=== PATIENT | male | born 1985 | race Caucasian/White ===

== ENCOUNTER 2023-07-09 23:33 | Inpatient (IN) | payer OTHER, SELFPAY ==
[2023-07-09 23:45] VITALS: BP 108/73; PULSE 80; RESP 16; TEMP 36.2; O2SAT 98
[2023-07-10 01:05] VITALS: BMI 17.1
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
[2023-07-10 07:35] VITALS: BP 116/79; PULSE 91; RESP 18; TEMP 36.1; O2SAT 97
[2023-07-10] MEDS: Dorzolamide HCl 2 % Ophth Sol 10 ML DRPBTL 1 DROP EYE-BOTH ×2 (09:59→20:39)
--- NOTE | 2023-07-10 11:28 | HO.PM.IMCN ---
History of Present Illness Data of Consult Service Date: 07/10/23 Requesting physician: Stefano Salas Primary Care Provider: Stephany Villavicencio MD HPI Reason for consult: medical H&P 38-year-old male with history of mild intermittent asthma, schizophrenia, and retinitis pigmentosa who is a 1/2 pack per day cigarette smoker admitted to Psychiatry from [facility] ED with consult placed hospitalist service for medical H and P. while in the ED, hematology studies without any significant abnormality. Renal function normal, electrolyte levels normal. Urine tox screen negative. He denies any illicit drug use or marijuana use. Denies any alcohol use. He has no complaints at this time. Review of Systems Review of Systems: General: No fevers, malaise, unintentional weight loss HEENT: No blurred vision, diplopia. No sore throat, nasal congestion, rhinorrhea, sinus pain, ear pain Cardiovascular: No chest pain, palpitations, or leg edema Respiratory: No shortness of breath, wheezing, cough GI: No abdominal pain, nausea, vomiting, diarrhea, constipation, melena, hematochezia : No dysuria, hematuria, increased urinary frequency, decreased urinary output MSK: No myalgia, back pain Neuro: No headaches, weakness, paresthesias Skin: No rashes or lesions PENDING SALE TO [facility] Medical History Retinitis pigmentosa Asthma Social History Household Members: Other Household Members Other:: Lives in [facility] long term Housing: House Do you presently have visiting nurse or other home services: Yes ([facility] staff) Patient Tobacco Use Status: Current everyday Tobacco user Tobacco use type: Cigarette Cigarette Packs Per Day: 0.4 Cigarettes Per Day: 8.0 Smoked in Last 30 Days: Yes e-Cigarette/Vaping Use: Never Used Patient Interested in Nicotine Replacement: Yes Patient Given Instructions on How to Stop Smoking: Yes Date Education Initiated: 07/10/23 Second Hand Smoke Exposure: Yes Use of substances other than those prescribed or required for medical reasons: No Currently Displaying Signs/Symptoms of Drug Intoxication Withdrawal: No Any prior treatment program specific to substance use: No Have you been hit, kicked, punched, or otherwise hurt by someone within the past year? If so, by whom?: No Do you feel safe in your current relationship?: No Current Relationship Is there a partner from a previous relationship who is making you feel unsafe now?: No Are you made to feel afraid or neglected: No Spiritual Healthcare Practices: Spirit of It Sabianist Healthcare Practices: none reported Cultural Healthcare Practices: none reported Advance Directives: No Advance Directives Information Provided: No Do you have thoughts of harming others: None Do you have a plan to hurt others: No Plan Recently lost weight without trying: No How much weight loss: Not applicable Eating poorly because of decreased appetite: No Nutrition screen score: 0 Nutrition Risks: No Nutritional Risk Poor oral hygiene: No Meds Allergies Allergy/AdvReac Type Severity Reaction Status Date / Time No Known Allergies Allergy Verified 07/10/23 00:15 Active Medications: Current Medications Acetaminophen (Acetaminophen 325 Mg Tablet) 650 mg PO Q6H PRN PRN Reason: Headache/Pain Mild Scale (1-3) Al Hydroxide/Mg Hydroxide (Magnesium Hydrox/Alum Hydrox 30 Ml Oral.Susp) 30 ml PO Q6H PRN PRN Reason: Heartburn/Nausea Albuterol Sulfate (Albuterol Sulfate 90 Mcg 8 Gm Inhaler) 2 puff INHALE RQ4H PRN PRN Reason: Shortness of Breath Dorzolamide HCl (Dorzolamide Hcl 2 % Ophth Nedra 10 Ml Drpbtl) 1 drop EYE-BOTH BID [facility] Last Admin: 07/10/23 09:59 Dose: 1 drop Dorzolamide HCl (Dorzolamide Hcl 2 % Ophth Nedra 10 Ml Drpbtl) 1 drop EYE-RIGHT DAILY@1500 [facility] Hydroxyzine HCl (Hydroxyzine Hcl 25 Mg Tablet) 25 mg PO Q6H PRN PRN Reason: Anxiety Magnesium Hydroxide (Milk Of Magnesia 30 Ml Oral.Susp) 30 ml PO DAILY PRN PRN Reason: Constipation Nicotine (Nicotine 21 Mg Patch.Td24) 21 mg TRANSDERMA DAILY PRN PRN Reason: smoking cessation Nicotine Polacrilex (Nicotine Polacrilex 2 Mg Gum) 4 mg BUCCAL Q2H PRN PRN Reason: Nicotine Cravings Olanzapine (Olanzapine 5 Mg Tablet) 5 mg PO TID PRN PRN Reason: Restlessness Trazodone HCl (Trazodone Hcl 50 Mg Tablet) 50 mg PO BEDTIME MRX1 PRN PRN Reason: Insomnia Home Medications Medication Instructions Recorded Confirmed Last Taken Type dorzolamide 2 % eye drops 1 drp ophthalmic (eye) BID 07/10/23 07/10/23 Unknown History dorzolamide 2 % eye drops 1 drp ophthalmic-Right DAILY@1500 07/10/23 07/10/23 Unknown History olanzapine 2.5 mg tablet 2.5 mg PO BEDTIME 07/10/23 07/10/23 07/09/23 21:00 History 2.5 mg paliperidone palmitate 234 mg/1.5 234 mg IM Q28D 07/10/23 07/10/23 06/26/23 History mL intramuscular syringe (Invega Sustenna) Physical Exam Vital Signs and Narrative: Vital Signs: Last Vital Signs Temp 97.0 F 07/10/23 07:35 Pulse 91 07/10/23 07:35 Resp 18 07/10/23 07:35 BP 116/79 07/10/23 07:35 Pulse Ox 97 07/10/23 07:35 O2 Del Method Room Air 07/10/23 07:35 BMI result Body Mass Index 17.1 Constitutional - Awake and Alert, No apparent distress Eyes - PERRLA, EOMI Cardiovascular - S1S2, RRR, No edema Respiratory - Normal lung expansion, Normal respiratory effort, No respiratory distress, CTA bilaterally Gastrointestinal - NT / ND; +BS; No rebound or guarding Extremities - no calf tenderness bilaterally, no swelling Musculoskeletal - Normal inspection, normal ROM Skin - Warm/Dry Neurological - Alert & oriented x3, CN II-XII in tact, 5/5 strength BUE and BLE Psychological - Appropriate affect Assessment and Plan (1) Routine medical exam: Status: Acute Plan 38-year-old male with history of mild intermittent asthma, schizophrenia, and retinitis pigmentosa who is a 1/2 pack per day cigarette smoker admitted to Psychiatry from [facility] ED with consult placed hospitalist service for medical H and P. #Mood/psychotic disorder -plan per psychiatry #Mild intermittent asthma -no acute exacerbation -albuterol prn # retinitis pigmentosa -continue eyedrops as prescribed -outpatient follow-up # nicotine dependence -smoking cessation counseling -NRt Thank you for allowing me to participate in this consult. Signing off at this time. Please do not hesitate to call for further questions.
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
[2023-07-10] MEDS: Dorzolamide HCl 2 % Ophth Sol 10 ML DRPBTL 1 DROP EYE-RIGHT (18:17)
[2023-07-10 19:55] VITALS: BP 137/83; PULSE 79; RESP 16; TEMP 36.6; O2SAT 98
[2023-07-10] MEDS: OLANZapine 5 MG TABLET PO (20:39)
[2023-07-11 06:00] VITALS: BP 108/65; PULSE 94; RESP 16; TEMP 36.2; O2SAT 97
[2023-07-11 07:00] VITALS: BMI 16.9
[2023-07-11 08:18] LABS: Estimated Average Glucose 97 mg/dL
[2023-07-11 08:22] LABS: Cholesterol 182 mg/dL (<200); HDL Cholesterol 65 mg/dL (>40); LDL Cholesterol Calculated 100 mg/dL (<100); Triglycerides 85 mg/dL (<150)
[2023-07-11] MEDS: Dorzolamide HCl 2 % Ophth Sol 10 ML DRPBTL 1 DROP EYE-BOTH ×2 (08:23→20:56)
[2023-07-11 08:45] VITALS: BP 108/65; PULSE 94; RESP 16; TEMP 36.2; O2SAT 97
[2023-07-11] MEDS: Dorzolamide HCl 2 % Ophth Sol 10 ML DRPBTL 1 DROP EYE-RIGHT (14:38)
--- NOTE | 2023-07-11 15:06 | HO.PSYCHPN ---
Subjective Subjective Date of Service: 07/11/23 Reason For Visit: Depression/SI Interim History: no change in presentation. no issues with increase in dosing last night. per staff, denies psych Sx. no dinner. taking meds. slept about 8 hours. Mental Status Exam Mental Status Exam Narrative: adequately dressed in street clothes, appears disheveled. cooperative. no PMA/PMR. speech terse, nml loudness, flattened tone. thoughts linear and logical. affect flat. mood not assessed. no SI/SIBI/HI/AVH expressed. Diagnostics Vital Signs (24Hr): Vital Signs - 24 hr 07/10/23 19:55 07/11/23 06:00 07/11/23 08:45 Temperature 98 F 97.2 F 97.2 F Pulse Rate 79 94 94 Respiratory Rate 16 16 16 Blood Pressure 137/83 108/65 108/65 Pulse Oximetry 98 97 97 Oxygen Delivery Method Room Air Room Air Room Air BMI result Body Mass Index 16.9 Labs Labs: Laboratory Results - last 48 hr 07/11/23 07:54 Estimat Average Glucose 97 Hemoglobin A1c % 5.0 Triglycerides 85 Cholesterol 182 LDL Cholesterol, Calc 100 H HDL Cholesterol 65 Medications Medications Current Medications Acetaminophen (Acetaminophen 325 Mg Tablet) 650 mg PO Q6H PRN PRN Reason: Headache/Pain Mild Scale (1-3) Al Hydroxide/Mg Hydroxide (Magnesium Hydrox/Alum Hydrox 30 Ml Oral.Susp) 30 ml PO Q6H PRN PRN Reason: Heartburn/Nausea Albuterol Sulfate (Albuterol Sulfate 90 Mcg 8 Gm Inhaler) 2 puff INHALE RQ4H PRN PRN Reason: Shortness of Breath Dorzolamide HCl (Dorzolamide Hcl 2 % Ophth Nedra 10 Ml Drpbtl) 1 drop EYE-BOTH BID [facility] Last Admin: 07/11/23 08:23 Dose: 1 drop Dorzolamide HCl (Dorzolamide Hcl 2 % Ophth Nedra 10 Ml Drpbtl) 1 drop EYE-RIGHT DAILY@1500 [facility] Last Admin: 07/11/23 14:38 Dose: 1 drop Hydroxyzine HCl (Hydroxyzine Hcl 25 Mg Tablet) 25 mg PO Q6H PRN PRN Reason: Anxiety Magnesium Hydroxide (Milk Of Magnesia 30 Ml Oral.Susp) 30 ml PO DAILY PRN PRN Reason: Constipation Nicotine (Nicotine 21 Mg Patch.Td24) 21 mg TRANSDERMA DAILY PRN PRN Reason: smoking cessation Nicotine Polacrilex (Nicotine Polacrilex 2 Mg Gum) 4 mg BUCCAL Q2H PRN PRN Reason: Nicotine Cravings Olanzapine (Olanzapine 5 Mg Tablet) 5 mg PO TID PRN PRN Reason: Restlessness Olanzapine (Olanzapine 5 Mg Tablet) 5 mg PO BEDTIME [facility] Last Admin: 07/10/23 20:39 Dose: 5 mg Paliperidone Palmitate (Paliperidone Palmitate 234 Mg/1.5 Ml Syringe) 234 mg IM Q28D [facility] Trazodone HCl (Trazodone Hcl 50 Mg Tablet) 50 mg PO BEDTIME MRX1 PRN PRN Reason: Insomnia Allergies Allergies Allergy/AdvReac Type Severity Reaction Status Date / Time No Known Allergies Allergy Verified 07/10/23 00:15 Assessment & Plan Assessment & Plan (1) Schizophrenia: Status: Acute Code(s): F20.9 - Schizophrenia, unspecified Plan 07/10: last sustenna 234 on 06/26. increase HS zyprexa from 2.5 mg to 5 mg as of tonight. otherwise continue previous mgmt. 07/11: tolerating med change well. continue current mgmt. Reason for continued inpatient stay Substantial Risk for: harm to others, inability to function and rapid decompensation Time Spent With Patient Time: Total time managing care of this patient today __25__ minutes.
[2023-07-11 20:40] VITALS: BP 128/80; PULSE 88; RESP 18; TEMP 36.4; O2SAT 97
[2023-07-11] MEDS: OLANZapine 5 MG TABLET PO (20:57)
[2023-07-12 06:00] VITALS: BP 109/73; PULSE 83; RESP 18; TEMP 36.5; O2SAT 98
[2023-07-12] MEDS: Dorzolamide HCl 2 % Ophth Sol 10 ML DRPBTL 1 DROP EYE-BOTH ×2 (08:45→22:22)
--- NOTE | 2023-07-12 13:22 | P.PNPSI_ITS ---
Subjective Subjective Date of Service: 07/12/23 Reason For Visit: Depression/SI Interim History: calm, cooperative, pleasant. denies any problems, no questions. no side effects, taking medications, sleeping well. aware of plan to discharge back to correction next saturday. per staff, withdrawn. denies AVH. slept 7 hours. Mental Status Exam Mental Status Exam Narrative: adequately dressed in street clothes, appears disheveled. cooperative. no PMA/PMR. speech terse, nml loudness, flattened tone. thoughts linear and logical. affect flat. mood not assessed. no SI/SIBI/HI/AVH expressed. Diagnostics Vital Signs (24Hr): Vital Signs - 24 hr 07/11/23 20:40 07/12/23 06:00 Temperature 97.6 F 97.7 F Pulse Rate 88 83 Respiratory Rate 18 18 Blood Pressure 128/80 109/73 Pulse Oximetry 97 98 Oxygen Delivery Method Room Air Room Air BMI result Body Mass Index 16.9 Labs Labs: Laboratory Results - last 48 hr 07/11/23 07:54 Estimat Average Glucose 97 Hemoglobin A1c % 5.0 Triglycerides 85 Cholesterol 182 LDL Cholesterol, Calc 100 H HDL Cholesterol 65 Medications Medications Current Medications Acetaminophen (Acetaminophen 325 Mg Tablet) 650 mg PO Q6H PRN PRN Reason: Headache/Pain Mild Scale (1-3) Al Hydroxide/Mg Hydroxide (Magnesium Hydrox/Alum Hydrox 30 Ml Oral.Susp) 30 ml PO Q6H PRN PRN Reason: Heartburn/Nausea Albuterol Sulfate (Albuterol Sulfate 90 Mcg 8 Gm Inhaler) 2 puff INHALE RQ4H PRN PRN Reason: Shortness of Breath Dorzolamide HCl (Dorzolamide Hcl 2 % Ophth Nedra 10 Ml Drpbtl) 1 drop EYE-BOTH BID [facility] Last Admin: 07/12/23 08:45 Dose: 1 drop Dorzolamide HCl (Dorzolamide Hcl 2 % Ophth Nedra 10 Ml Drpbtl) 1 drop EYE-RIGHT DAILY@1500 [facility] Last Admin: 07/11/23 14:38 Dose: 1 drop Hydroxyzine HCl (Hydroxyzine Hcl 25 Mg Tablet) 25 mg PO Q6H PRN PRN Reason: Anxiety Magnesium Hydroxide (Milk Of Magnesia 30 Ml Oral.Susp) 30 ml PO DAILY PRN PRN Reason: Constipation Nicotine (Nicotine 21 Mg Patch.Td24) 21 mg TRANSDERMA DAILY PRN PRN Reason: smoking cessation Nicotine Polacrilex (Nicotine Polacrilex 2 Mg Gum) 4 mg BUCCAL Q2H PRN PRN Reason: Nicotine Cravings Olanzapine (Olanzapine 5 Mg Tablet) 5 mg PO TID PRN PRN Reason: Restlessness Olanzapine (Olanzapine 5 Mg Tablet) 5 mg PO BEDTIME [facility] Last Admin: 07/11/23 20:57 Dose: 5 mg Paliperidone Palmitate (Paliperidone Palmitate 234 Mg/1.5 Ml Syringe) 234 mg IM Q28D [facility] Trazodone HCl (Trazodone Hcl 50 Mg Tablet) 50 mg PO BEDTIME MRX1 PRN PRN Reason: Insomnia Allergies Allergies Allergy/AdvReac Type Severity Reaction Status Date / Time No Known Allergies Allergy Verified 07/10/23 00:15 Assessment & Plan Assessment & Plan (1) Schizophrenia: Status: Acute Code(s): F20.9 - Schizophrenia, unspecified Plan 07/10: last sustenna 234 on 06/26. increase HS zyprexa from 2.5 mg to 5 mg as of tonight. otherwise continue previous mgmt. 07/11: tolerating med change well. continue current mgmt. 07/12: stable. continue current mgmt. Reason for continued inpatient stay Substantial Risk for: harm to others, inability to function and rapid decompensation Time Spent With Patient Time: Total time managing care of this patient today ____ minutes.
[2023-07-12] MEDS: Dorzolamide HCl 2 % Ophth Sol 10 ML DRPBTL 1 DROP EYE-RIGHT (17:19)
[2023-07-12 20:11] VITALS: BP 126/72; PULSE 82; RESP 18; TEMP 36.2; O2SAT 98
[2023-07-12] MEDS: OLANZapine 5 MG TABLET PO (22:20)
[2023-07-13 08:30] VITALS: BP 119/71; PULSE 76; RESP 16; TEMP 35.9; O2SAT 97
[2023-07-13] MEDS: Dorzolamide HCl 2 % Ophth Sol 10 ML DRPBTL 1 DROP EYE-BOTH ×2 (08:31→21:39)
--- NOTE | 2023-07-13 14:35 | HO.PSYCHPN ---
Subjective Subjective Date of Service: 07/13/23 Reason For Visit: Depression/SI Subjective Notes: Conditional Voluntary Interim History: The nursing staff reported the patient had been compliant with treatment, he had poor eye contact and today he was anxious and fidgety refusing to go to any groups in the morning. On interview the patient denies new symptoms but denies side effects. Mental Status Exam Mental Status Exam Patient Appearance: Appropriate Patient Orientation: Person and Situation Level of Consciousness: Awake and Appropriate Patient Behavior: Guarded and Passive Mood Description: Withdrawn Affect Description: Constricted Patient Cognition Impaired: Yes Ability to Follow Directions: Good Speech Pattern: Clear Hallucinations: None Delusions: Not Present Thought Process: Distracted and Evasive Thought Content: positive for [place] and positive for Poverty of Content Judgement: Fair Diagnostics Vital Signs (24Hr): Vital Signs - 24 hr 07/12/23 20:11 07/13/23 08:30 Temperature 97.1 F 96.6 F L Pulse Rate 82 76 Respiratory Rate 18 16 Blood Pressure 126/72 119/71 Pulse Oximetry 98 97 Oxygen Delivery Method Room Air BMI result Body Mass Index 16.9 Medications Medications Current Medications Acetaminophen (Acetaminophen 325 Mg Tablet) 650 mg PO Q6H PRN PRN Reason: Headache/Pain Mild Scale (1-3) Al Hydroxide/Mg Hydroxide (Magnesium Hydrox/Alum Hydrox 30 Ml Oral.Susp) 30 ml PO Q6H PRN PRN Reason: Heartburn/Nausea Albuterol Sulfate (Albuterol Sulfate 90 Mcg 8 Gm Inhaler) 2 puff INHALE RQ4H PRN PRN Reason: Shortness of Breath Dorzolamide HCl (Dorzolamide Hcl 2 % Ophth Nedra 10 Ml Drpbtl) 1 drop EYE-BOTH BID [facility] Last Admin: 07/13/23 08:31 Dose: 1 drop Dorzolamide HCl (Dorzolamide Hcl 2 % Ophth Nedra 10 Ml Drpbtl) 1 drop EYE-RIGHT DAILY@1500 [facility] Last Admin: 07/12/23 17:19 Dose: 1 drop Hydroxyzine HCl (Hydroxyzine Hcl 25 Mg Tablet) 25 mg PO Q6H PRN PRN Reason: Anxiety Magnesium Hydroxide (Milk Of Magnesia 30 Ml Oral.Susp) 30 ml PO DAILY PRN PRN Reason: Constipation Nicotine (Nicotine 21 Mg Patch.Td24) 21 mg TRANSDERMA DAILY PRN PRN Reason: smoking cessation Nicotine Polacrilex (Nicotine Polacrilex 2 Mg Gum) 4 mg BUCCAL Q2H PRN PRN Reason: Nicotine Cravings Olanzapine (Olanzapine 5 Mg Tablet) 5 mg PO TID PRN PRN Reason: Restlessness Olanzapine (Olanzapine 5 Mg Tablet) 5 mg PO BEDTIME [facility] Last Admin: 07/12/23 22:20 Dose: 5 mg Paliperidone Palmitate (Paliperidone Palmitate 234 Mg/1.5 Ml Syringe) 234 mg IM Q28D [facility] Trazodone HCl (Trazodone Hcl 50 Mg Tablet) 50 mg PO BEDTIME MRX1 PRN PRN Reason: Insomnia Allergies Allergies Allergy/AdvReac Type Severity Reaction Status Date / Time No Known Allergies Allergy Verified 07/10/23 00:15 Assessment & Plan Assessment & Plan (1) Schizophrenia: Status: Acute Code(s): F20.9 - Schizophrenia, unspecified Plan 07/10: last sustenna 234 on 06/26. increase HS zyprexa from 2.5 mg to 5 mg as of tonight. otherwise continue previous mgmt. 07/11: tolerating med change well. continue current mgmt. 07/12: stable. continue current mgmt. 07/13 keep same treatment Reason for continued inpatient stay Substantial Risk for: inability to function, rapid decompensation and med/psych decompensation Time Spent With Patient Time: Total time managing care of this patient today __20__ minutes.
[2023-07-13] MEDS: Dorzolamide HCl 2 % Ophth Sol 10 ML DRPBTL 1 DROP EYE-RIGHT (15:16)
[2023-07-13 20:48] VITALS: BP 120/63; PULSE 67; RESP 18; TEMP 36.8; O2SAT 99
[2023-07-13] MEDS: OLANZapine 5 MG TABLET PO (21:37)
[2023-07-14 07:40] VITALS: BP 111/68; PULSE 74; RESP 16; TEMP 35.9; O2SAT 98
[2023-07-14] MEDS: Dorzolamide HCl 2 % Ophth Sol 10 ML DRPBTL 1 DROP EYE-BOTH ×2 (08:31→20:19)
--- NOTE | 2023-07-14 14:17 | HO.PSYCHPN ---
Subjective Subjective Date of Service: 07/14/23 Reason For Visit: Depression/SI Subjective Notes: Conditional Voluntary Interim History: The nursing staff reported the patient denies depression but he had been isolative spending most of the time on his bed. He showered yesterday. On interview the patient reports that he is doing fine but his internally preoccupied refusing any med changes at this moment content with current treatment. Mental Status Exam Mental Status Exam Patient Appearance: Appropriate Patient Orientation: Person Level of Consciousness: Awake Patient Behavior: Guarded and Passive Mood Description: Withdrawn Affect Description: Blunted Ability to Follow Directions: Good Speech Pattern: Clear Hallucinations: None Delusions: Ideas of Reference Thought Process: Distracted Thought Content: positive for [place] and positive for Poverty of Content Judgement: Fair Diagnostics Vital Signs (24Hr): Vital Signs - 24 hr 07/13/23 20:48 07/14/23 07:40 Temperature 98.2 F 96.6 F L Pulse Rate 67 74 Respiratory Rate 18 16 Blood Pressure 120/63 111/68 Pulse Oximetry 99 98 Oxygen Delivery Method Room Air Room Air BMI result Body Mass Index 16.9 Medications Medications Current Medications Acetaminophen (Acetaminophen 325 Mg Tablet) 650 mg PO Q6H PRN PRN Reason: Headache/Pain Mild Scale (1-3) Al Hydroxide/Mg Hydroxide (Magnesium Hydrox/Alum Hydrox 30 Ml Oral.Susp) 30 ml PO Q6H PRN PRN Reason: Heartburn/Nausea Albuterol Sulfate (Albuterol Sulfate 90 Mcg 8 Gm Inhaler) 2 puff INHALE RQ4H PRN PRN Reason: Shortness of Breath Dorzolamide HCl (Dorzolamide Hcl 2 % Ophth Nedra 10 Ml Drpbtl) 1 drop EYE-BOTH BID [facility] Last Admin: 07/14/23 08:31 Dose: 1 drop Dorzolamide HCl (Dorzolamide Hcl 2 % Ophth Nedra 10 Ml Drpbtl) 1 drop EYE-RIGHT DAILY@1500 [facility] Last Admin: 07/13/23 15:16 Dose: 1 drop Hydroxyzine HCl (Hydroxyzine Hcl 25 Mg Tablet) 25 mg PO Q6H PRN PRN Reason: Anxiety Magnesium Hydroxide (Milk Of Magnesia 30 Ml Oral.Susp) 30 ml PO DAILY PRN PRN Reason: Constipation Nicotine (Nicotine 21 Mg Patch.Td24) 21 mg TRANSDERMA DAILY PRN PRN Reason: smoking cessation Nicotine Polacrilex (Nicotine Polacrilex 2 Mg Gum) 4 mg BUCCAL Q2H PRN PRN Reason: Nicotine Cravings Olanzapine (Olanzapine 5 Mg Tablet) 5 mg PO TID PRN PRN Reason: Restlessness Olanzapine (Olanzapine 5 Mg Tablet) 5 mg PO BEDTIME [facility]ARYBETH Last Admin: 07/13/23 21:37 Dose: 5 mg Paliperidone Palmitate (Paliperidone Palmitate 234 Mg/1.5 Ml Syringe) 234 mg IM Q28D [facility]ARYB[facility] Trazodone HCl (Trazodone Hcl 50 Mg Tablet) 50 mg PO BEDTIME MRX1 PRN PRN Reason: Insomnia Allergies Allergies Allergy/AdvReac Type Severity Reaction Status Date / Time No Known Allergies Allergy Verified 07/10/23 00:15 Assessment & Plan Assessment & Plan (1) Schizophrenia: Status: Acute Code(s): F20.9 - Schizophrenia, unspecified Plan 07/10: last sustenna 234 on 06/26. increase HS zyprexa from 2.5 mg to 5 mg as of tonight. otherwise continue previous mgmt. 07/11: tolerating med change well. continue current mgmt. 07/12: stable. continue current mgmt. 07/13 keep same treatment 07/14 keep same treatment Reason for continued inpatient stay Substantial Risk for: inability to function, rapid decompensation and med/psych decompensation Time Spent With Patient Time: Total time managing care of this patient today _20__ minutes.
[2023-07-14] MEDS: Dorzolamide HCl 2 % Ophth Sol 10 ML DRPBTL 1 DROP EYE-RIGHT (15:56)
[2023-07-14 19:50] VITALS: BP 115/64; PULSE 77; RESP 14; TEMP 35.8; O2SAT 99
[2023-07-14] MEDS: OLANZapine 5 MG TABLET PO (20:19)
[2023-07-15 07:15] VITALS: BP 111/69; PULSE 76; RESP 20; TEMP 36.7; O2SAT 98
[2023-07-15] MEDS: Dorzolamide HCl 2 % Ophth Sol 10 ML DRPBTL 1 DROP EYE-BOTH ×2 (08:10→20:31)
[2023-07-15 08:22] VITALS: BP 111/69; PULSE 76; RESP 20; TEMP 36.7; O2SAT 98
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
[2023-07-15] MEDS: Dorzolamide HCl 2 % Ophth Sol 10 ML DRPBTL 1 DROP EYE-RIGHT (15:52)
[2023-07-15 19:45] VITALS: BP 116/64; PULSE 78; RESP 15; TEMP 36.1; O2SAT 98
[2023-07-15] MEDS: OLANZapine 5 MG TABLET PO (20:31)
[2023-07-16 07:45] VITALS: BP 114/67; PULSE 71; RESP 16; TEMP 36.5; O2SAT 100
[2023-07-16] MEDS: Dorzolamide HCl 2 % Ophth Sol 10 ML DRPBTL 1 DROP EYE-BOTH (08:46)
== END 2023-07-16 10:52 | disposition home or self-care (01) | DRG 885 ==
PROVIDERS: Psychiatry & Neurology Psychiatry; Admitting Provider Psychiatry & Neurology Psychiatry; PCP Family Medicine; Visit Provider Psychiatry & Neurology Psychiatry
DX: F20.9 Schizophrenia, unspecified (principal); F17.210 Nicotine dependence, cigarettes, uncomplicated; J45.20 Mild intermittent asthma, uncomplicated; H35.52 Pigmentary retinal dystrophy; Z71.6 Tobacco abuse counseling; Z79.899 Other long term (current) drug therapy
CPT/HCPCS: 36415; 80061; 83036

== ENCOUNTER → 2023-07-09 23:33 | Outpatient (BNV) | payer OTHER, SELFPAY | PROVIDERS: Admitting Provider Psychiatry & Neurology Psychiatry; PCP Family Medicine; Visit Provider Physician Assistant | DX: Z02.2 Encounter for examination for admission to residential institution (principal) | CPT/HCPCS: 99429 ==

== ENCOUNTER → 2023-07-09 23:33 | Outpatient (BNV) | payer OTHER, SELFPAY | PROVIDERS: Admitting Provider Psychiatry & Neurology Psychiatry; PCP Family Medicine; Visit Provider Psychiatry & Neurology Psychiatry | DX: F20.9 Schizophrenia, unspecified (principal) | CPT/HCPCS: 90792; 99231; 99239 ==